=== PATIENT | male | born 1940 | race Caucasian/White ===

== ENCOUNTER 2018-04-30 08:58 | Emergency (ER) | payer MEDICARE, BC ==
[~2018-04-30] VITALS: Ht 170.2 cm; Wt 74.8 kg
[~2018-04-30 08:58] MED LIST: ALAVERT10 MG PO; BENEFIBER1 EAC1 PO; FLAGYL500 MG PO; LASIX20 MG PO; LEVAQUIN500 MG PO; MELOXICAM15 MG PO; METOPROLOL SUC100 MG PO; METOPROLOL TART50 MG PO; MIRALAX17 GM PO; NORCO 5-325 TA1 EACH PO; OMEPRAZOLE20 MG PO; OMEPRAZOLE40 MG PO; REMERON15 MG PO; STOOL SOFTENER100 MG PO; TAMSULOSIN HCL0.4 MG PO; VITAMIN D35000 UNIT PO; WELLBUTRIN XL300 MG PO; ZIPRASIDONE HCL60 MG PO; ZOLOFT25 MG PO; ZOLPIDEM TARTRA10 MG PO
[2018-04-30] MEDS ORDERED: TRAZODONE HCL150 MG PO (09:17)
[2018-04-30] MEDS ORDERED: BUPROPION XL300 MG PO (09:17)
[2018-04-30] MEDS ORDERED: ZOLPIDEM TART12.5 MG PO (09:17)
[2018-04-30] MEDS ORDERED: WARFARIN SODIUM5 MG PO (09:18)
--- NOTE | 2018-05-01 07:38 | EKG ---
[facility] [address] [facility] [place] [address] Signed Normal sinus rhythm Normal ECG No previous ECGs available Confirmed by IGLESIA AARON MD ([id number]) on 05/01/2018 7:38:04 AM Electronically Signed By: IGLESIA AARON MD 05/01/18 0738 PATIENT NAME: JORDYN MACKENZIE Electrocardiogram DATE OF : 38 PHYSICIAN: IGLESIA AARON MD REPORT #: [id number] REPORT IS CONFIDENTIAL AND NOT TO BE RELEASED WITHOUT AUTHORIZATION
== END 2018-04-30 10:55 | disposition home or self-care (01) ==
LOC: ED 08:58
PROC: 0T9B70Z Drainage of Bladder with Drainage Device, Via Natural or Artificial Opening (ICD-10-PCS; principal; 2018-04-30)
DX: E86.0 Dehydration (principal); Z88.2 Allergy status to sulfonamides; Z88.0 Allergy status to penicillin; Z88.6 Allergy status to analgesic agent; Z88.8 Allergy status to other drugs, medicaments and biological substances
CPT/HCPCS: 51701; 71045; 80053; 81001; 83605; 84484; 85025; 85610; 85730; 93005; 93010; 99284